=== PATIENT | female | born 1955 | race Caucasian/White ===

== ENCOUNTER 2020-07-29 09:07 | Emergency (ER) | payer MEDICARE ==
[~2020-07-29 09:07] MED LIST: CETI-89 PO; EZET10TA48 PO; HYDR200T82 PO; LEVO75 PO; MULT-1250 PO; PRED5TAB PO; SIMV40TA59 PO; VENL225T3 PO
[2020-07-29 09:46] LABS: BASOPHILS % (AUTO) 0.6 % (0.0-5.0); EOSINOPHILS % (AUTO) 4.5 % (0.0-8.0); HEMATOCRIT 42.2 % (36-48); LYMPHOCYTES % (AUTO) 23.3 % (21.0-51.0); MEAN CORPUSCULAR HEMOGLOBIN 29.8 pg (27.0-33.0); MEAN CORPUSCULAR HGB CONC 32.9 g/dL (32.0-36.0); MEAN CORPUSCULAR VOLUME 90.4 fL (79-99); MONOCYTES % (AUTO) 11.2 % (3.0-13.0); PLATELET COUNT (AUTO) 309 K/uL (130-400); RED BLOOD CELL COUNT(AUTO) 4.67 MIL/uL (4.00-5.50); WHITE BLOOD COUNT (AUTO) 4.9 K/uL (4.8-10.8)
[2020-07-29 10:10] LABS: INR 0.95 (0.85-1.15); PARTIAL THROMBOPLASTIN TIME 23.9 SEC (26.3-35.5); PROTHROMBIN TIME 10.3 SEC (9.6-11.6)
[2020-07-29 10:41] LABS: ALBUMIN 3.4 g/dL (3.5-5.0); BILIRUBIN,TOTAL 0.5 mg/dL (0.2-1.0); CREATININE 0.8 mg/dL (0.5-1.5); POTASSIUM 4.3 mmol/L (3.5-5.1); TOTAL PROTEIN, SERUM 6.9 g/dL (6.0-8.3)
== END 2020-07-29 12:14 | disposition home or self-care (01) ==
LOC: EDH 09:07
DX: L76.22 Postprocedural hemorrhage of skin and subcutaneous tissue following other procedure (principal); S82.851E Displaced trimalleolar fracture of right lower leg, subsequent encounter for open fracture type I or II with routine healing; E78.00 Pure hypercholesterolemia, unspecified; Z87.891 Personal history of nicotine dependence; K59.00 Constipation, unspecified; X58.XXXA Exposure to other specified factors, initial encounter
CPT/HCPCS: 29505; 36415; 80053; 82550; 83605; 84145; 85025; 85610; 85730; 87040

== ENCOUNTER 2022-12-10 17:15 | Emergency (ER) | payer MEDICARE ==
[~2022-12-10] VITALS: Ht 160 cm; Wt 74.8 kg
[2022-12-10] MEDS ORDERED: IBUPROFEN 600 MG TABLET PO ONE (18:30)
[2022-12-10 20:18] VITALS: BP 148/85
[2022-12-10] MEDS ORDERED: ACET-2079 PO (20:41)
== END 2022-12-10 20:45 | disposition home or self-care (01) ==
LOC: EDH 17:15
DX: S92.331A Displaced fracture of third metatarsal bone, right foot, initial encounter for closed fracture (principal); E78.00 Pure hypercholesterolemia, unspecified; Z79.899 Other long term (current) drug therapy; Z90.89 Acquired absence of other organs; X50.1XXA Overexertion from prolonged static or awkward postures, initial encounter; Y93.89 Activity, other specified; Y92.89 Other specified places as the place of occurrence of the external cause; Y99.8 Other external cause status
CPT/HCPCS: 73630